=== PATIENT | female | born 1970 | race Caucasian/White ===

== ENCOUNTER → 2018-07-11 | Outpatient (CLI) | payer BC ==
--- NOTE | 2018-07-11 17:24 | RADIOLOGY IMAGING REPORT ---
FACILITY: [facility] [place] PATIENT NAME: Alicja Craft : 1970 MR: [id number] V: [id number] EXAM DATE: ORDERING PHYSICIAN: THUY JOSE TECHNOLOGIST: [place] [facility] [place]ja Craft : 1970 Visit/Account:[id number] Date of Sevice: 07/11/2018 PELVIC HISTORY: Pelvic and perineal pain TECHNIQUE: Transvaginal transabdominal ultrasound pelvis. COMPARISON: None. FINDINGS: Uterus: ; 6.4 cm length x 3 cm AP x 4.5 cm transverse. Myometrium: Unremarkable. Endometrium: Appears thin; double thickness 1.2 mm. Cervix: Grossly negative. Ovaries: Right - 2.4 x 1.3 x 1.5 cm Left - 1.7 x 0.9 x 1.3 cm Blood flow is documented in each ovary by duplex Doppler ultrasound. Adnexa: There is an ill-defined complex collection in the right adnexa which could represent fluid-fi lled bowel versus free fluid.. Free pelvic fluid: As above. IMPRESSION: There is an ill-defined complex collection the right adnexa which could represent fluid-filled bowel versus free fluid. Report Dictated By: Agueda Day MD at 07/11/2018 4:43 PM Report E-Signed By: Agueda Day MD at 07/11/2018 5:20 PM WSN:[id number]
--- NOTE | 2018-07-12 08:27 | RADIOLOGY IMAGING REPORT ---
FACILITY: [facility] - [place] PATIENT NAME: TEE REDDY : [id number] MR: [id number] V: [id number] EXAM DATE: [id number] ORDERING PHYSICIAN: THUY JOSE TECHNOLOGIST: Kathia Hartman PROCEDURE:BILATERAL DIGITAL SCREENING MAMMOGRAM WITH CAD ASSISTED INTERPRETATION & 3D TOMOSYNTHESIS COMPARISON:Prior mammograms 05/01/12. INDICATIONS:SCREENING FINDINGS: The breasts are heterogeneously dense which can obscure small masses. The parenchymal pattern has remained stable allowing for difference in mammographic technique & patient positioning. DIAGNOSTIC CATEGORY 1--NEGATIVE. RECOMMENDATIONS: ROUTINE MAMMOGRAM AND CLINICAL EVALUATION. IMPRESSION: BIRADS 1: Negative. No significant abnormality is seen. Dictated by: Agueda Day M.D. on 07/11/2018 at 17:16 Transcribed by: OZZIE on 07/12/2018 at 8:23 Approved by: Agueda Day M.D. on 07/12/2018 at 8:26 [facility]
== END ==
LOC: MAMO 00:52
PROVIDERS: ATTEND Nurse Practitioner Psychiatric/Mental Health
DX: Z00.00 Encounter for general adult medical examination without abnormal findings (principal); R10.2 Pelvic and perineal pain
CPT/HCPCS: 76856; 77063; 77067